=== PATIENT | male | born 1970 | race Caucasian/White ===

== ENCOUNTER 2017-07-22 09:37 | Emergency (ER) | payer SELFPAY | END 2017-07-22 10:20 | disposition home or self-care (01) | LOC: ER 09:37 | DX: K02.9 Dental caries, unspecified (principal); K04.7 Periapical abscess without sinus; I10 Essential (primary) hypertension; F10.20 Alcohol dependence, uncomplicated; F12.10 Cannabis abuse, uncomplicated; Z88.0 Allergy status to penicillin | CPT/HCPCS: 99283 ==

== ENCOUNTER 2020-06-17 16:21 | Emergency (ER) | payer OTHER ==
[~2020-06-17] VITALS: Ht 182.9 cm; Wt 71.0 kg
[~2020-06-17 16:21] MED LIST: CLIN300C9 PO; IBUP-1060 PO
[2020-06-17 16:47] VITALS: BP 169/95
--- NOTE | 2020-06-17 17:35 | PHYS DOC ---
Past Medical History Past Medical History: Other Additional Past Medical Histor: TONGUE CA, THYROID DZ Past Surgical History: Other Additional Past Surgical Histo: Right hand surgery Smoking Status: Current Every Day Smoker Additional Information: 04/19 PPD Alcohol Use: Occasionally Drug Use: Marijuana General Adult EDM: Chief Complaint: UPPER EXTREMITY INJURY HPI: HPI: Patient is a 49 year old male who presents with states he was up on a ladder and a piece of wood fell down towards him and he put his arm up to shoulder his head and his face. The piece of board hit his dorsal right wrist and forearm causing a skin avulsion is approximately 5 inches long on the dorsal arm and a second skin tear that is approximately 2 inches long over the hand. Patient states he is up-to-date on his tetanus. He states that he has pain in the wrist that shoots up into the forearm. He can make a fist but it is painful. Patient has a history of tongue cancer, thyroid disease, half pack smoker a day. He rates his pain as sharp shooting and a 7 out of 10. He states he took a couple Tylenol prior to coming in the pain is better. Review of Systems: Review of Systems: Constitutional: Denies fever or chills. [] Eyes: Denies change in visual acuity. [] HENT: Denies nasal congestion or sore throat. [] Respiratory: Denies cough or shortness of breath. [] Cardiovascular: Denies chest pain or edema. [] GI: Denies abdominal pain, nausea, vomiting, bloody stools or diarrhea. [] : Denies dysuria. [] Musculoskeletal: Denies back pain. + Right wrist joint pain. + Right forearm pain [] Integument: Denies rash. + Dorsal right forearm [] Neurologic: Denies headache, focal weakness or sensory changes. [] Endocrine: Denies polyuria or polydipsia. [] Lymphatic: Denies swollen glands. [] Psychiatric: Denies depression or anxiety. [] Heart Score: Risk Factors: Risk Factors: DM, Current or recent (<one month) smoker, HTN, HLP, family history of CAD, obesity. Risk Scores: Score 0 - 3: 2.5% MACE over next 6 weeks - Discharge Home Score 4 - 6: 20.3% MACE over next 6 weeks - Admit for Clinical Observation Score 7 - 10: 72.7% MACE over next 6 weeks - Early Invasive Strategies Allergies: Allergies: Allergies Coded Allergies Type Severity Reaction Last Updated Verified Penicillins Allergy Intermediate 05/12/15 Yes Physical Exam: PE: Constitutional: Well developed, well nourished, no acute distress, non-toxic appearance. [] HENT: Normocephalic, atraumatic, bilateral external ears normal, oropharynx moist, no oral exudates, nose normal. [] Eyes: PERRLA, EOMI, conjunctiva normal, no discharge. [] Neck: Normal range of motion, no tenderness, supple, no stridor. [] Cardiovascular:Heart rate regular rhythm, no murmur [] Lungs & Thorax: Bilateral breath sounds clear to auscultation [] Abdomen: Bowel sounds normal, soft, no tenderness, no masses, no pulsatile masses. [] Skin: Warm, dry, no erythema, no rash. Superficial skin avulsions to dorsal forearm and hand [] Back: No tenderness, no CVA tenderness. [] Extremities: Right wrist tenderness, no cyanosis, no clubbing, right wrist ROM limited intact, 1+ edema. [] Neurologic: Alert and oriented X 3, normal motor function, normal sensory function, no focal deficits noted. [] Psychologic: Affect normal, judgement normal, mood normal. [] Current Patient Data: Vital Signs: Vital Signs Date Time Temp Pulse Resp B/P (MAP) Pulse Ox O2 Delivery O2 Flow Rate FiO2 06/17/20 16:47 97.6 76 20 169/95 (119) 97 Room Air 97.6 EKG: EKG: [] Radiology/Procedures: Radiology/Procedures: [] Impression: [facility] [address] [place], [place] [id number] IMAGING REPORT Signed PATIENT: WILIAM CHRISTINE RACCOUNT: [id number] : 1970 LOCATION: ER AGE: 49 SEX: M EXAM STATUS: REG ER ORD. PHYSICIAN: RICHI JC APRN REASON: injury PROCEDURE: WRIST 3V RIGHT XR FOREARM_RIGHT 2 VIEWS, XR RT WRIST 3VIEWS Clinical Indication: Reason: injury / Spl. Instructions: / History: Comparison: None. Findings: There is no acute fracture of the radius or ulna. No elbow joint effusion. No elbow dislocation. No soft tissue swelling of the forearm. There is no acute fracture or dislocation of the wrist. No bony erosion is identified. There is degenerative change of the DRUJ. 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 There is carpal metacarpal joint space narrowing. There is moderate triscaphe narrowing. 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 There is radiocarpal joint space narrowing. The mineralization is normal. There is no soft tissue swelling or radiopaque foreign body. IMPRESSION: 1. No acute fracture of the forearm or wrist. 2. Moderate arthropathy of the wrist. Electronically signed by: Noel Coats MD (06/17/2020 5:46 PM) [facility] DICTATED and SIGNED BY: NOEL COATS MD DATE: 06/17/20 [id number] 0 Course & Med Decision Making: Course & Med Decision Making Pertinent Labs and Imaging studies reviewed. (See chart for details) See HPI. The wounds are shallow superficial. Patient has some range of motion but is limited in the wrist. Patient states most of his pain is in the wrist. Radial pulses strong and present. Cap refill less than 2 seconds. Skin pink warm and dry. Maybe 1+ swelling to the wrist. Alert and oriented x4. Speaks in full complete sentences. Denies any numbness or tingling, coolness to the extremity or focal weakness. Wounds were cleaned with chlorhexidine and dressed. Patient is placed in a volar splint. He can follow-up with orthopedics if needed. [] Navdeep Disclaimer: Navdeep Disclaimer: This electronic medical record was generated, in whole or in part, using a voice recognition dictation system. Departure Departure Impression: Primary Impression: Wrist pain, acute Qualified Codes: M25.531 - Pain in right wrist Additional Impressions: Forearm pain Qualified Codes: M79.631 - Pain in right forearm Avulsion of skin Disposition: 01 DC HOME SELF CARE/HOMELESS Condition: STABLE Referrals: UNKNOWN PCP NAME (PCP) SHAILA HE MD Patient Instructions: Contusion, Deep Skin Avulsion, Wrist Sprain with Rehab- [facility] Additional Instructions: Follow up with a primary care provider. Watch for signs of infection. Keep wound clean and covered. Follow-up with your primary care or orthopedic. RICHI JC APRN Jun 17, 2020 17:34
--- NOTE | 2020-06-17 17:48 | RAD ---
XR FOREARM_RIGHT 2 VIEWS, XR RT WRIST 3VIEWS Clinical Indication: Reason: injury / Spl. Instructions: / History: Comparison: None. Findings: There is no acute fracture of the radius or ulna. No elbow joint effusion. No elbow dislocation. No s oft tissue swelling of the forearm. There is no acute fracture or dislocation of the wrist. No bony erosion is identified. There is degenerative change of the DRUJ. 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 There is carpal metacarpal joint space narrowing. There is moderate triscaphe narro wing. 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 There is radiocarpal joint space narrowing. The mineralization is normal. There is no soft tissue swelling or radiopaque foreign body. IMPRESSION: 1. No acute fracture of the forearm or wrist. 2. Moderate arthropathy of the wrist. Electronically signed by: Noel Coats MD (06/17/2020 5:46 PM) [facility]
[2020-06-17] MEDS ORDERED: NEOMY/BACITR/POLYMYXIN OINT PACKET. TP ONE (18:15)
== END 2020-06-17 18:20 | disposition home or self-care (01) ==
LOC: ER 16:21
DX: S61.501A Unspecified open wound of right wrist, initial encounter (principal); M25.531 Pain in right wrist; M79.631 Pain in right forearm; F17.200 Nicotine dependence, unspecified, uncomplicated; F12.90 Cannabis use, unspecified, uncomplicated; Z98.890 Other specified postprocedural states; Z88.0 Allergy status to penicillin; W11.XXXA Fall on and from ladder, initial encounter; Y93.89 Activity, other specified; Y92.89 Other specified places as the place of occurrence of the external cause; Y99.8 Other external cause status
CPT/HCPCS: 29125; 73090; 73110; 99284